=== PATIENT | female | born 1995 | race Caucasian/White ===

== ENCOUNTER 2016-09-13 23:13 | Emergency (ER) | payer OTHER, MEDICAID ==
[2016-09-14] LABS: BASO % 0.1 % (0-6); EOS % 0.8 % (0-6); GRAN % 72.9 % (47-80); HEMATOCRIT 38.3 % (35.0-47.0); HEMOGLOBIN 13.2 gm/dl (11.6-16.0); LYMPH % 19.3 % (16-45); MEAN CELL VOLUME 91.6 fl (81-97); MEAN CORPUSCULAR HEMOGLOBIN 31.6 pg (27-33); MEAN CORPUSCULAR HGB CONC 34.5 g/dl (32-36); MEAN PLATELET VOLUME 11.1 fl (7.4-10.4); MONO % 6.9 % (0-9); PLATELET COUNT 227 K/uL (130-400); RED BLOOD COUNT 4.18 M/uL (3.80-5.40); RED CELL DISTRIBUTION WIDTH 13.2 % (11.5-14.5); WHITE BLOOD COUNT W/O DIFF 14.4 K/uL (4.2-12.2)
[2016-09-14] MEDS ORDERED: CEFTRIAXONE SODIUM 1 GM in 0.9 % SODIUM CHLORIDE 100ML 100 ML IVPB ONE (00:06)
--- NOTE | 2016-09-14 00:45 | Emergency Department Record ---
History of Present Illness - General Chief Complaint: Wound, check Stated Complaint: INFECTED BLISTER Time Seen by Provider: 09/13/16 23:36 Source: Patient Mode of arrival: Ambulatory Limitations: No limitations - History of Present Illness Initial Comments: pt has a blister on her toe and then froylan noticed a streak going up her foot.this is not a recheck. pt is 29 wks Onset/Timin -: Days(s) Initial Visit For: Cellulitis, Other Returns Today for: Needs IV antibiotics, Other Associated Symptoms: None - Related Data Home Medications Medication Instructions Recorded Confirmed Last Taken Vit,Nicholas 74/Iron/Folic 1 each PO DAILY 09/13/16 09/13/16 09/13/16 [ Low Iron Tablet] Previous Rx's Medication Instructions Recorded Cephalexin [Keflex] 500 mg PO QID #40 cap 09/14/16 Allergies Allergy/AdvReac Type Severity Reaction Status Date / Time No Known Drug Allergies Allergy Verified 01/16/16 16:32 Travel Screening - Travel/Exposure Within Last 30 Days Have you traveled within the last 30 days?: No - Travel Symptoms Symptom Screening: None Review of Systems Reviewed: No additional complaints except as noted below Constitutional: Reports: As per HPI. Denies: Chills, Fever, Malaise, Night sweats, Weakness, Weight change Eyes: Reports: As per HPI. Denies: Eye discharge, Eye pain, Photophobia, Vision change ENT: Reports: As per HPI. Denies: Congestion, Dental pain, Ear pain, Epistaxis , Hearing loss, Throat pain Respiratory: Reports: As per HPI. Denies: Cough, Dyspnea, Hemoptysis, Stridor, Wheezes Cardiovascular: Reports: As per HPI. Denies: Arrhythmia, Chest pain, Dyspnea on exertion, Edema, Murmurs, Orthopnea, Palpitations, Paroxysmal nocturnal dyspnea, Rheumatic Fever, Syncope Endocrine: Reports: As per HPI. Denies: Fatigue, Heat or cold intolerance, Polydipsia, Polyuria Gastrointestinal: Reports: As per HPI. Denies: Abdominal pain, Constipation, Diarrhea, Hematemesis, Hematochezia, Melena, Nausea, Vomiting Genitourinary: Reports: As per HPI. Denies: Abnormal menses, Discharge, Dyspareunia, Dysuria, Frequency, Hematuria, Incontinence, Retention, Urgency Musculoskeletal: Reports: As per HPI. Denies: Arthralgia, Back pain, Gout, Joint swelling, Myalgia, Neck pain Skin: Reports: As per HPI. Denies: Bruising, Change in color, Change in hair/ nails, Lesions, Pruritus, Rash Neurological: Reports: As per HPI. Denies: Abnormal gait, Confusion, Headache, Numbness, Paresthesias, Seizure, Tingling, Tremors, Vertigo, Weakness Psychiatric: Reports: As per HPI. Denies: Anxiety, Auditory hallucinations, Depression, Homicidal thoughts, Suicidal thoughts, Visual hallucinations Hematological/Lymphatic: Reports: As per HPI. Denies: Anemia, Blood Clots, Easy bleeding, Easy bruising, Swollen glands Past Medical History - SOCIAL HISTORY Smoking Status: Never smoker - RESPIRATORY Hx Respiratory Disorders: No - CARDIOVASCULAR Hx Cardio Disorders: No Comment:: works out 6 days per week - NEURO Hx Neuro Disorders: No - GI Hx GI Disorders: Yes Hx Abdominal Pain: Yes (ruu pain began 1-2 mos ago, intermittent pc,sebas grease.Constant since 02/21) Hx Nausea/Vomiting: Yes (n/v 02/22) - Hx Genitourinary Disorders: No - ENDOCRINE Hx Endocrine Disorders: No - MUSCULOSKELETAL Hx Musculoskeletal Disorders: No - PSYCH Hx Psych Problems: No Hx Anxiety: Yes (Used to be on Zoloft) - HEMATOLOGY/ONCOLOGY Hx Hematology/Oncology Disorders: No Family Medical History Any Significant Family History?: Yes Family Hx Comment (NOT TO BE USED IN PLACE OF ITEMS BELOW): Dad had gallbladder removed. Father has diverticulitis. Hx Anxiety: Father Hx Heart Disease: Grandparents Physical Exam - General General Appearance: Alert, Oriented x3, Cooperative, Mild distress Limitations: No limitations - Head Head exam: Normal inspection - Eye Eye exam: Normal appearance, PERRL, EOMI Pupils: Normal accommodation - ENT ENT exam: Normal exam, Mucous membranes moist, Normal external ear exam, Normal orophraynx Ear exam: Normal external inspection. negative: External canal tenderness Nasal Exam: Normal inspection. negative: Discharge, Sinus tenderness Mouth exam: Normal external inspection, Tongue normal Teeth exam: Normal inspection. negative: Dental caries Throat exam: Normal inspection. negative: Tonsillar erythema, Tonsillar exudate - Neck Neck exam: Normal inspection, Full ROM. negative: Tenderness - Respiratory Respiratory exam: Normal lung sounds bilaterally. negative: Respiratory distress - Cardiovascular Cardiovascular Exam: Regular rate, Normal rhythm, Normal heart sounds - GI/Abdominal GI/Abdominal exam: Soft, Normal bowel sounds. negative: Tenderness - Rectal Rectal exam: Deferred - exam: Deferred - Extremities Extremities exam: Full ROM, Normal capillary refill, Tenderness Image of Feet: 1 - blister w erythema and oozing 2 - red streak up foot - Back Back exam: Reports: Normal inspection, Full ROM. Denies: Muscle spasm, Rash noted, Tenderness - Neurological Neurological exam: Alert, CN II-XII intact, Normal gait, Oriented X3 - Psychiatric Psychiatric exam: Normal affect, Normal mood - Skin Skin exam: Dry, Intact, Normal color, Warm Course Vital Signs 09/13/16 23:17 Temperature 98.1 F Pulse Rate 84 Respiratory 18 Rate Blood Pressure 138/76 Pulse Ox 99 Medical Decision Making - Lab Data Result diagrams: 09/13/16 23:50 Lab Results 09/13/16 Range/Units 23:50 WBC 14.4 H (4.2-12.2) K/uL RBC 4.18 (3.80-5.40) M/uL Hgb 13.2 (11.6-16.0) gm/dl Hct 38.3 (35.0-47.0) % MCV 91.6 (81-97) fl MCH 31.6 (27-33) pg MCHC 34.5 (32-36) g/dl RDW 13.2 (11.5-14.5) % Plt Count 227 (130-400) K/uL MPV 11.1 H (7.4-10.4) fl Gran % 72.9 (47-80) % Lymphocytes % 19.3 (16-45) % Monocytes % 6.9 (0-9) % Eosinophils % 0.8 (0-6) % Basophils % 0.1 (0-6) % Disposition Disposition: Discharge Clinical Impression: Cellulitis Qualifiers: Site of cellulitis: extremity Site of cellulitis of extremity: lower extremity Laterality: right Qualified Code(s): L03.115 - Cellulitis of right lower limb Disposition: Home, Self-Care Condition: (1) Good Instructions: Cellulitis (ED) Additional Instructions: recheck in 12 hrs. return sooner if worse. elevate leg Prescriptions: Cephalexin [Keflex] 500 mg PO QID #40 cap Forms: Patient Portal Access
== END 2016-09-14 01:10 | disposition home or self-care (01) ==
LOC: ER 23:13
DX: L03.031 Cellulitis of right toe (principal); Z33.1 Pregnant state, incidental
CPT/HCPCS: 85025; 96365; 99284

== ENCOUNTER 2016-09-14 11:11 | Emergency (ER) | payer OTHER, MEDICAID ==
--- NOTE | 2016-09-14 11:26 | Emergency Department Record ---
History of Present Illness - General Chief Complaint: Wound, check Stated Complaint: INFECTION RECHECK Time Seen by Provider: 09/14/16 11:20 Source: Patient, Family Mode of arrival: Ambulatory - History of Present Illness Initial Comments: 20 yo female presents for a recheck of a right foot infection. She was seen in the ED 12 hours ago. She reports resolution of the red streaking that was occurring last night. No fever, no chills. The blister area is clean and dry. She is 29 weeks . Normal movement and not fluids leaking or bleeding. MD Complaint: Wound re-check -: Days(s) (1) Initial Visit For: Cellulitis Returns Today for: Cellulitis follow-up Symptoms Since Prior Visit: No new symptoms, Improved Associated Symptoms: None - Related Data Home Medications Medication Instructions Recorded Confirmed Last Taken Vit,Nicholas 74/Iron/Folic 1 each PO DAILY 09/13/16 09/14/16 09/13/16 [ Low Iron Tablet] Previous Rx's Medication Instructions Recorded Cephalexin [Keflex] 500 mg PO QID #40 cap 09/14/16 Allergies Allergy/AdvReac Type Severity Reaction Status Date / Time No Known Drug Allergies Allergy Verified 09/14/16 11:15 Review of Systems Constitutional: Denies: Chills, Fever, Weakness Eyes: Denies: Eye discharge ENT: Denies: Congestion Respiratory: Denies: Cough Cardiovascular: Denies: Chest pain Endocrine: Denies: Fatigue Gastrointestinal: Denies: Abdominal pain, Diarrhea, Nausea, Vomiting Genitourinary: Denies: Dysuria, Urgency Musculoskeletal: Denies: Arthralgia, Back pain, Myalgia Skin: Reports: As per HPI, Change in color. Denies: Bruising, Rash Neurological: Denies: Headache Psychiatric: Denies: Anxiety Hematological/Lymphatic: Denies: Blood Clots, Easy bleeding, Easy bruising, Swollen glands Past Medical History - SOCIAL HISTORY Smoking Status: Never smoker Alcohol Use: None Drug Use: None - RESPIRATORY Hx Respiratory Disorders: No - CARDIOVASCULAR Hx Cardio Disorders: No Comment:: works out 6 days per week - NEURO Hx Neuro Disorders: No - GI Hx GI Disorders: Yes Hx Abdominal Pain: Yes (ruu pain began 1-2 mos ago, intermittent pc,sebas grease.Constant since 02/21) Hx Nausea/Vomiting: Yes (n/v 11/28) - Hx Genitourinary Disorders: No - ENDOCRINE Hx Endocrine Disorders: No - MUSCULOSKELETAL Hx Musculoskeletal Disorders: No - PSYCH Hx Psych Problems: No Hx Anxiety: Yes (Used to be on Zoloft) - HEMATOLOGY/ONCOLOGY Hx Hematology/Oncology Disorders: No Family Medical History Any Significant Family History?: Yes Family Hx Comment (NOT TO BE USED IN PLACE OF ITEMS BELOW): Dad had gallbladder removed. Father has diverticulitis. Hx Anxiety: Father Hx Heart Disease: Grandparents Physical Exam - General General Appearance: Alert, Oriented x3, Cooperative, No acute distress - Head Head exam: Atraumatic - Eye Eye exam: Normal appearance - ENT ENT exam: Normal exam Ear exam: Normal external inspection Nasal Exam: Normal inspection - Neck Neck exam: Normal inspection - Rectal Rectal exam: Deferred - exam: Deferred - Extremities Extremities exam: Normal capillary refill. negative: Normal inspection Image of Feet: 1 - dry clean blister, no streaking or erythema visible - Neurological Neurological exam: Alert, Normal gait, Oriented X3, Reflexes normal - Psychiatric Psychiatric exam: Normal affect, Normal mood - Skin Skin exam: Dry, Intact, Normal color, Warm Course - Reevaluation(s) Reevaluation #1: The foot is improved with no visible streaking, much improved from the picture from last night on the patient's phone DC on Keflex Vitals reviewed 09/14/16 11:25 Disposition Disposition: Discharge Clinical Impression: Cellulitis Qualifiers: Site of cellulitis: unspecified site Qualified Code(s): L03.90 - Cellulitis, unspecified Disposition: Home, Self-Care Condition: (1) Good Instructions: Cellulitis (ED) Additional Instructions: Continue the Keflex until finished Return if redness or swelling return Forms: Patient Portal Access Time of Disposition: 11:26
== END 2016-09-14 11:42 | disposition home or self-care (01) ==
LOC: ER 11:11
DX: L03.031 Cellulitis of right toe (principal); Z33.1 Pregnant state, incidental
CPT/HCPCS: 99282